=== PATIENT | female | born 1960 | race Caucasian/White ===

== ENCOUNTER 2019-05-08 17:53 | Emergency (ER) | payer OTHER ==
[~2019-05-08] VITALS: Ht 149.9 cm; Wt 78.0 kg
[2019-05-08] MEDS ORDERED: LEVSIN/SL0.125 MG SL (22:05)
[2019-05-08] MEDS ORDERED: PEPCID AC20 MG PO (22:05)
[2019-05-08] MEDS ORDERED: INTESTINEX680 M1 PO (22:05)
== END 2019-05-08 22:15 | disposition home or self-care (01) ==
LOC: ER 17:53
DX: K29.70 Gastritis, unspecified, without bleeding (principal); R10.13 Epigastric pain; E86.0 Dehydration

== ENCOUNTER 2019-05-11 13:47 | Emergency (ER) | payer OTHER ==
[~2019-05-11] VITALS: Ht 149.9 cm; Wt 78.0 kg
[~2019-05-11 13:47] MED LIST: INTESTINEX680 M1 PO; LEVSIN/SL0.125 MG SL; PEPCID AC20 MG PO
[2019-05-11] MEDS ORDERED: KETOROLAC15 MG/1 M1 (14:18)
[2019-05-11] MEDS ORDERED: ORPHENADRI30 MG/1 M1 (14:18)
== END 2019-05-11 18:43 | disposition home or self-care (01) ==
LOC: ER 13:47
DX: K29.70 Gastritis, unspecified, without bleeding (principal)